=== PATIENT | male | born 1960 | race Caucasian/White ===

== ENCOUNTER 2023-08-03 18:37 | Emergency (ER) | payer OTHER, MEDICAID, SELFPAY ==
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
[2023-08-03 19:16] VITALS: BP 144/74; BP 150/96; PULSE 70; PULSE 76; RESP 16; TEMP 37; O2SAT 96; O2SAT 98; BMI 37.3
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
[2023-08-03] MEDS: Acetaminophen 325 MG TABLET 975 MG PO (20:04)
[2023-08-03 20:15] LABS: Basophils Percent Auto 0.3 % (0-2); Eosinophils Absolute Auto 0.2 X10*3/uL (0.0-0.4); Eosinophils Percent Auto 1.8 % (0-4); Hematocrit 43.3 % (42.0-52.0); Hemoglobin 15.5 g/dl (14.0-18.0); Imm Gran Abs Auto 0.02 X10*3/uL (0.00-0.03); Imm Gran Pct Auto 0.2 % (0.0-0.4); Lymphocytes Percent Auto 23.2 % (20-40); MANUAL DIFF FLAG NO; Mean Corpuscular HGB Conc 35.8 g/dl (31.0-36.0); Mean Corpuscular Hemoglobin 30.6 pg (27.0-33.0); Mean Corpuscular Volume 85.6 fL (80.0-98.0); Mean Platelet Volume 9.4 fL (9.4-12.4); Monocytes Absolute Auto 0.6 X10*3/uL (0.1-1.2); Monocytes Percent Auto 7.3 % (2-11); Neutrophils Absolute Auto 5.8 x10*3/uL (2.0-8.3); Neutrophils Percent Auto 67.2 % (45-73); Platelet Count 240 X10*3/uL (160-400); Red Blood Count 5.06 X10*6/uL (4.60-5.80); Red Cell Distribution Width 12.9 % (11.0-16.0); White Blood Count 8.7 X10*3/uL (4.8-10.8)
[2023-08-03 20:28] LABS: Alanine Aminotransferase 85 U/L (0-40); Albumin Level 4.3 g/dL (3.5-5.0); Alkaline Phosphatase 65 U/L (39-117); Anion Gap 12 (12-20); Aspartate Amino Transferase 44 U/L (5-37); Bilirubin Direct 0.2 mg/dL (0.0-0.5); Bilirubin Total 0.4 mg/dL (0.0-1.0); Blood Urea Nitrogen 15 mg/dL (9-16); Calcium 9.6 mg/dL (8.4-10.2); Carbon Dioxide 26 mmol/L (22-29); Chloride 106 mmol/L (96-108); Creatinine Clr Calc Pharmacy 69.7; Estimated Glomerular Filt Rate > 60; Glucose Random 87 mg/dL (60-115); Lipase 30 U/L (8-78); Potassium 4.3 mmol/L (3.3-5.1); Sodium 140 mmol/L (135-145); Total Protein 8.2 g/dL (6.5-8.0)
[2023-08-03] MEDS: iohexoL 350 MG/ML 100 ML INFUS..BTL IV (20:48)
[2023-08-03 23:53] VITALS: BP 128/76; PULSE 65; RESP 16; TEMP 36.6; O2SAT 96
--- NOTE | 2023-08-03 23:54 | PC.NURSE ---
pt calm and cooperative. pt partner at bedside. iv removed at bedside. pt ambulatory at discharge pt provided with discharge packet pt and pt partner verbalized understanding of discharge plan
== END 2023-08-03 23:56 | disposition home or self-care (01) ==
PROVIDERS: Physician Assistant Medical; Emergency Provider Internal Medicine
DX: S49.91XA Unspecified injury of right shoulder and upper arm, initial encounter (principal); S80.01XA Contusion of right knee, initial encounter; R51.9 Headache, unspecified; R07.89 Other chest pain; M54.2 Cervicalgia; M25.531 Pain in right wrist; M25.521 Pain in right elbow; V03.90XA Pedestrian on foot injured in collision with car, pick-up truck or van, unspecified whether traffic or nontraffic accident, initial encounter; Y93.9 Activity, unspecified; Y92.411 Interstate highway as the place of occurrence of the external cause; Y99.8 Other external cause status; Z79.899 Other long term (current) drug therapy
CPT/HCPCS: 36415; 70450; 70486; 71260; 72125; 73030; 73070; 73110; 73562; 74177; 80048; 80076; 83690; 85025; 99284; Q9967